=== PATIENT | male | born 1975 | race Caucasian/White ===

== ENCOUNTER 2017-04-30 11:58 | Observation (INO) | payer BC ==
[2017-04-30] MEDS ORDERED: ONDANSETRON 4 MG/2 ML VIAL IVP ONE (13:13)
[2017-04-30] MEDS ORDERED: NS 1,000 ML IV ONE (13:13)
--- NOTE | 2017-04-30 13:18 | EDPHY ---
H & P Smoking Status: Never smoked Time Seen by Provider: 04/30/17 12:34 HPI/ROS: HPI Lower abdominal pain. 42-year-old male by private vehicle. This patient complains of left lower quadrant to mid abdominal pain, starting at approximately 4:00 a.m. This morning. He has had associated nausea and 1 episode of nonbilious, nonbloody vomiting. Pain described as sharp and aching with radiation into his left testicle. No history of trauma. His last meal was at 4:00 p.m. Yesterday. Prior abdominal surgical history includes appendectomy. He reports having a similar episode of this pain but less severe about a week ago. This resolved spontaneously. At that time it lasted about 15-20 minutes. ROS: Constitutional: No fever, no chills. No weakness. Eyes: No discharge. No changes in vision. ENT: No sore throat. No nasal congestion or rhinorrhea. Respiratory: No cough. No shortness of breath. Cardiac: No chest pain, no palpitations. Gastrointestinal: As above, no diarrhea. : No dysuria, denies increased frequency with urination. No gross hematuria. Musculoskeletal: No back pain. No neck pain. No myalgias or arthralgias. Skin: No rashes. Neurological: No headache. No focal weakness or altered sensation. Past medical history: Appendectomy. Social history: Nonsmoker. Here by himself. No alcohol. Physical Exam: General Appearance: Alert, no distress. This patient is responding to questions appropriately and in full sentences. This patient appears well- hydrated and well-nourished. Eyes: Pupils equal and round no pallor or injection. No lid edema, erythema or injection. Respiratory: There are no retractions, lungs are clear to auscultation with good air movement bilaterally. Cardiovascular: Regular rate and rhythm. No murmur. Gastrointestinal: Abdomen is soft with mild to moderate left lower quadrant tenderness on palpation, no masses, bowel sounds normal. No focal tenderness at McBurney's point. No Mitchell sign. Genitourinary: Testicles are unremarkable on exam, normal testicular lie, no clinical evidence of torsion. No masses. Normal circumcised penis. Neurological: Motor sensory function is grossly intact. Cranial nerves are normal. Gait is normal. Skin: Warm and dry, no rashes. Musculoskeletal: Neck is supple and nontender. Extremities are symmetrical. All joints range without pain or impingement. Psychiatric: No agitation. No depression. Database: EKG: Imaging: CT scan of abdomen and pelvis without IV contrast: Significant for a 7 mm distal ureteral stone on the left with moderate hydronephrosis. This stone is 3 mm above the bladder approximately. He also has several stones up in the right kidney. Results were discussed with staff radiologist Dr. Alhaji Rodriguez. Procedures: Emergency department course: IV placed. He was started on IV normal saline with 1 L to be given over the next hour. This time he declines any pain medication. Discussed CT imaging to evaluate for ureterolithiasis verses diverticulitis. He endorses. 1:35 p.m., patient given 0.5 mg of IV hydromorphone for pain. 2:40 p.m., patient re-evaluated. He reports his pain is coming back. He is here for work reasons only. He is staying in a hotel room. His stone is 7 mm. I do not think he will do very well as an outpatient. Plan will be to admit him to the hospitalist service overnight with Urology to consult. He endorses. Hospitalist paged. 3:00 p.m., spoke with hospitalist, patient accepted for admission under the care of Dr. Dr. Ellison. Urology paged. 3:15 p.m., re-evaluated patient. His pain is controlled at this time. Awaiting urology call back. Hospitalist to follow up on urology consultation. Patient admitted to the hospitalist service in stable condition. Differential Diagnosis: The differential diagnosis on this patient includes but is not limited to ureterolithiasis, diverticulitis, constipation. Appendicitis, volvulus, cholecystitis unlikely. This represents a partial list of diagnoses considered. These considerations are based on history, physical exam, past history, reassessment and diagnostic testing. It's (Mainor Sharma) Constitutional: Initial Vital Signs Temperature (C) 36.8 C 04/30/17 12:01 Heart Rate 69 04/30/17 12:01 Respiratory Rate 18 04/30/17 12:01 Blood Pressure 143/100 H 04/30/17 12:01 O2 Sat (%) 96 04/30/17 12:01 O2 Delivery Mode Room Air Allergies/Adverse Reactions: No Known Allergies Allergy (Unverified 04/30/17 12:00) Home Medications: Medication Instructions Recorded NK [No Known Home Meds] 04/30/17 Medical Decision Making - Diagnostics Imaging Results: Imaging Impressions Abdomen/Pelvis CT 04/30/17 13:33 Impression: 1. 7 mm distal left ureteral stone with moderate obstructive uropathy. 2. Multiple renal stones, as above. 3. Additional findings, as above. Findings discussed with Mainor Sharma MD on 04/30/2017 at 14:31. Attention: This CT examination is specifically designed to evaluate patients who are clinically suspected of having acute obstructive uropathy. This examination does not use radiographic contrast, and as such, provides only a limited evaluation of the abdomen, pelvis and retroperitoneum. If there is further clinical suspicion for pathological conditions other than obstructive uropathy, a complete CT evaluation of the abdomen and pelvis utilizing intravenous and oral contrast should be considered. Other Provider: As requested by Dr. Sharma, I fielded the call from Urology and requested a consult from Dr. Rosas a neurology will see the patient today. She requested Dr. Ellison will make the patient NPO today, which was communicated to the admitting hospitalist. I did not personally see or evaluate the patient. (Oswald Gonzalez) - Data Points Laboratory Results: Laboratory Results 04/30/17 12:30 04/30/17 12:30 04/30/17 04/30/17 04/30/17 12:30 12:30 12:30 WBC 11.71 10^3/uL H 10^3/uL (3.80-9.50) RBC 5.01 10^6/uL 10^6/uL (4.40-6.38) Hgb 15.6 g/dL g/dL (13.7-17.5) Hct 45.0 % % (40.0-51.0) MCV 89.8 fL fL (81.5-99.8) MCH 31.1 pg pg (27.9-34.1) MCHC 34.7 g/dL g/dL (32.4-36.7) RDW 11.8 % % (11.5-15.2) Plt Count 188 10^3/uL 10^3/uL (150-400) MPV 10.0 fL fL (8.7-11.7) Neut % (Auto) 90.0 % H % (39.3-74.2) Lymph % (Auto) 5.7 % L % (15.0-45.0) [place] % (Auto) 3.7 % L % (4.5-13.0) Eos % (Auto) 0.0 % L % (0.6-7.6) Baso % (Auto) 0.3 % % (0.3-1.7) Nucleat RBC Rel Count 0.0 % % (0.0-0.2) Absolute Neuts (auto) 10.55 10^3/uL H 10^3/uL (1.70-6.50) Absolute Lymphs (auto) 0.67 10^3/uL L 10^3/uL (1.00-3.00) Absolute Monos (auto) 0.43 10^3/uL 10^3/uL (0.30-0.80) Absolute Eos (auto) 0.00 10^3/uL L 10^3/uL (0.03-0.40) Absolute Basos (auto) 0.03 10^3/uL 10^3/uL (0.02-0.10) Absolute Nucleated RBC 0.00 10^3/uL 10^3/uL (0-0.01) Immature Gran % 0.3 % % (0.0-1.1) Immature Gran # 0.03 10^3/uL 10^3/uL (0.00-0.10) Sodium 139 mEq/L mEq/L (135-145) Potassium 3.6 mEq/L mEq/L (3.5-5.2) Chloride 102 mEq/L mEq/L (97-110) Carbon Dioxide 23 mEq/l mEq/l (22-31) Anion Gap 14 mEq/L mEq/L (8-16) BUN 14 mg/dL mg/dL (7-23) Creatinine 1.5 mg/dL H mg/dL (0.7-1.3) Estimated GFR 52 Glucose 114 mg/dL H mg/dL (70-100) Calcium 10.0 mg/dL mg/dL (8.5-10.4) Urine Color YELLOW Urine Appearance HAZY Urine pH 5.0 (5.0-7.5) Ur Specific [place] 1.029 (1.002-1.030) Urine Protein 1+ H (NEGATIVE) Urine Ketones 1+ H (NEGATIVE) Urine Blood 3+ H (NEGATIVE) Urine Nitrate NEGATIVE (NEGATIVE) Urine Bilirubin NEGATIVE (NEGATIVE) Urine Urobilinogen NEGATIVE EU EU (0.2-1.0) Ur Leukocyte Esterase NEGATIVE (NEGATIVE) Urine RBC 50-182 /hpf H /hpf (0-3) Urine WBC NONE SEEN /hpf /hpf (0-3) Ur Epithelial Cells NONE SEEN /lpf /lpf (NONE-1+) Urine Mucus 2+ /lpf H /lpf (NONE-1+) Urine Glucose NEGATIVE (NEGATIVE) Medications Given: Hydromorphone HCl (Dilaudid) 0.2 - 0.4 mg IVP Q3HRS PRN PRN Reason: Pain, Severe Unable to Take PO Stop: 05/10/17 15:04 Last Admin: 04/30/17 17:46 Dose: 0.4 mg Sodium Chloride (Ns) 1,000 mls @ 100 mls/hr IV CONT [facility] Stop: 10/27/17 15:14 Last Admin: 04/30/17 17:54 Dose: 1,000 mls Levofloxacin (Levaquin) 750 mg PO DAILY AT 10AM [facility] PRN Reason: Protocol Stop: 05/30/17 15:44 Last Admin: 04/30/17 17:51 Dose: 750 mg Ondansetron HCl (Zofran) 4 mg IVP Q4HRS PRN PRN Reason: Nausea/Vomiting, Can't Take PO Stop: 10/27/17 15:04 Last Admin: 04/30/17 17:54 Dose: 4 mg Tamsulosin HCl (Flomax) 0.4 mg PO DAILY [facility] Stop: 10/27/17 15:14 Last Admin: 04/30/17 17:51 Dose: Not Given Discontinued Medications Hydromorphone HCl (Dilaudid) 0.5 mg IVP EDNOW ONE Stop: 04/30/17 13:41 Last Admin: 04/30/17 13:50 Dose: 0.5 mg Hydromorphone HCl (Dilaudid) 0.5 mg IVP EDNOW ONE Stop: 04/30/17 14:40 Last Admin: 04/30/17 14:41 Dose: 0.5 mg Hydromorphone HCl (Dilaudid) 0.5 mg IVP EDNOW ONE Stop: 04/30/17 14:41 Last Admin: 04/30/17 14:42 Dose: Not Given Sodium Chloride (Ns) 1,000 mls @ 0 mls/hr IV EDNOW ONE; Wide Open PRN Reason: Protocol Stop: 04/30/17 13:14 Last Admin: 04/30/17 13:22 Dose: 1,000 mls Ondansetron HCl (Zofran) 4 mg IVP EDNOW ONE Stop: 04/30/17 13:14 Last Admin: 04/30/17 13:22 Dose: 4 mg Departure - Departure Disposition: [facility] Acute Clinical Impression: Lower abdominal pain, Kidney stone on left side Condition: Fair
[2017-04-30 13:22] LABS: PLATELET COUNT 188 10^3/uL (150-400)
[2017-04-30] MEDS ORDERED: HYDROmorphONE/DILAUDID 1 MG/ML INJ ONE (13:32)
[2017-04-30] MEDS ORDERED: HYDROmorphONE/DILAUDID 1 MG/ML INJ IVP ONE ×3 (13:40→14:40)
[2017-04-30] MEDS ORDERED: IBUPROFEN 200 MG TAB PO PRN (15:05)
[2017-04-30] MEDS ORDERED: ONDANSETRON DISINTEGRATING 4 MG TAB PO PRN (15:05)
[2017-04-30] MEDS ORDERED: ZOLPIDEM TARTRATE 5 MG TAB PO PRN (15:05)
[2017-04-30] MEDS ORDERED: ACETAMINOPHEN 325 MG TAB PO PRN (15:05)
--- NOTE | 2017-04-30 15:19 | ASMTLACE ---
SHAHNAZ Acuity / Level of Answers: Yes Care: Did the patient have an inpatient admission? # of Emergency department Answers: 1-2 visits in the last 6 months Score: 4 Date Signed: 04/30/2017 03:18 PM Electronically Signed By:Jewels Amor RN
--- NOTE | 2017-04-30 15:36 | PDGENHP ---
History and Physical History and Physical: CC: Left flank pain HISTORY: This patient is generally quite healthy developed an episode of left flank and left lower quadrant and left testicular pain about a week ago that lasted a couple of days and then with regular fluids seem to get better and resolved. Early this morning he had onset of recurrent pain in the same areas, constant and crampy with some the times of increased cramping. He has no burning with urine but has had some chills today. There has been nausea and vomiting associated with this today. He did not notice blood in his urine per se. He has never had anything like this before. Has no history of urologic illness of any kind including no previous stones but his father history of kidney stones ROS: A comprehensive 10 system review revealed no other significant findings. Notably there is no chest pain or angina-like symptoms, dyspnea, decreased exertion tolerance, upper respiratory symptoms, history of bleeding, history of thromboembolic disease, medication side effects or allergies, gastrointestinal illnesses, for syncopal spells or arrhythmia, symptoms of heart failure, and no family history of any these. As personal history of a appendectomy and had no problems with anesthesia PAST MEDICAL HISTORY: Appendectomy FAMILY MEDICAL HISTORY: Kidney stones in his father. SOCIAL HISTORY: Works for [employer], is here from [place] which is his home for work Rare alcohol intake, no tobacco MEDICATIONS: The patients list has been reconciled by our clinical pharmacist in the EMR. I have reviewed the list and ordered appropriate medicines. PHYSICAL EXAMINATION: Vital Signs: Mild hypertension otherwise normal without fever [employer] Supervisor: Sinus Examination: General: alert, oriented, good mentation, looks somewhat uncomfortable but in no distress Skin: warm, dry, good color, no rash HEENT: normal Neck: no mass or jvd Resps: relaxed Lungs: clear breath sounds Heart: regular, no murmur Abdomen: soft, nondistended, mildly tender in the left mid abdomen left lower quadrant and left flank with no rebound, +BS, no mass Upper Extremities: normal Lower Extremities: no edema, warm No Bleeding or bruising Neurologic: normal speech/language, normal associate pastor, no focal weakness IV site: looks normal LABORATORY DATA: Urinalysis with significant microscopic hematuria otherwise unremarkable White blood cell count elevated 11,000 Creatinine is elevated at 1.5 with no available baseline data RADIOLOGY STUDIES: CT scan of the abdomenpelvis done without contrast and I reviewed the images. He has obvious left side hydronephrosis and a distal calcified left ureteral stone at the UVJ ASSESSMENT: -obstructing ureteral left stone with hydronephrosis -upper tract urinary infection above stone suggested by chills and sweats and elevated white blood cell count -suspected acute verses less likely chronic her renal failure with creatinine 1.5 no available comparisons PLANS: -bring into the hospital in observation for treatment of pain and infection, and for likely surgical approach to stone extraction or at least stenting at this time -IV hydration -empiric antibiotics with Levaquin -pain management -follow renal function closely -the ER is attempting to contact the on-call urologist at this time I have reviewed the patient's case in detail with Dr. Sharma
[2017-04-30] MEDS: HYDROmorphONE/DILAUDID 1 MG/ML INJ IVP PRN ×2 (17:46→20:43)
[2017-04-30] MEDS: TAMSULOSIN HCL 0.4 MG CAP PO SCH ×2 (17:51→20:19)
[2017-04-30] MEDS: ONDANSETRON 4 MG/2 ML VIAL IVP PRN ×2 (17:54→23:21)
[2017-04-30] MEDS: NS 1,000 ML IV SCH (17:54)
[2017-05-01] MEDS: NS 1,000 ML IV SCH ×2 (04:36→20:58)
[2017-05-01] MEDS: ONDANSETRON 4 MG/2 ML VIAL IVP PRN ×5 (04:36→23:19)
[2017-05-01] MEDS: TAMSULOSIN HCL 0.4 MG CAP PO SCH (08:37)
--- NOTE | 2017-05-01 12:48 | HOSPPROG ---
Hospitalist Progress Note Assessment/Plan: * left kidney stone * Although pain is better, KUB confirms stone is still there * Will go to surgery this afternoon *? UTI * Urine is not convincing and only minimal elevation white blood cell count * Ready received a dose of antibiotics today but will not discharged on antibiotics Subjective: Pain feels better Objective: Vital Signs Temp Pulse Resp BP Pulse Ox 36.8 C 79 16 115/73 95 05/01/17 11:30 05/01/17 11:30 05/01/17 11:30 05/01/17 11:30 05/01/17 11:30 Laboratory Results 05/01/17 04:34 04/30/17 05/01/17 05/02/17 05:59 05:59 05:59 Intake Total 2266 Output Total 300 950 Balance 1966 -950 - Physical Exam Constitutional: no apparent distress, appears nourished, not in pain Eyes: anicteric sclera, EOMI Ears, Nose, Mouth, Throat: moist mucous membranes, hearing normal Gastrointestinal: normoactive bowel sounds, other (Mild CVA left lower quadrant tenderness) Neurologic: AAOx3 Psychiatric: interacting appropriately, not anxious, not encephalopathic, thought process linear ICD10 Worksheet Patient Problems: Problems Problem Status Onset Kidney stone on left side Acute Lower abdominal pain Acute
--- NOTE | 2017-05-01 13:03 | GCON ---
[f rep st] CONSULTATION DATE OF CONSULTATION: 05/01/2017 REASON FOR CONSULTATION: Ureterolithiasis. HISTORY OF PRESENT ILLNESS: This is a pleasant 42-year-old man, who presented to the emergency room yesterday with acute left lower quadrant and left flank pain. He had a similar episode a week earlie r that had then subsided. He was also having nausea and vomiting. Denied gross hematuria. No prior history of kidney stones but does have a family history of stones. He lives in [place] and is here visiting. REVIEW OF SYSTEMS: Ten-point review of systems negative except as mentioned in HPI. PAST MEDICAL HISTORY: Appendectomy. FAMILY HISTORY: Kidney stones for father. SOCIAL HISTORY: Lives in [place], outside [place]. Is here working with [employer]. Rare alcohol intake . No tobacco. . and father at bedside. MEDICATIONS: Are in the EMR system. PHYSICAL EXAMINATION: VITAL SIGNS: Blood pressure 115/73, heart rate 79, respirations 16, O2 95, te mperature 36.8. GENERAL: This is a well-developed, well-nourished male in no acute distress. HEENT : Normocephalic, atraumatic. Extraocular movements intact. NECK: Supple. No lymphadenopathy. Tr achea midline. RESPIRATORY: No accessory respiratory muscle use. CARDIAC: Regular rate and rhythm . No lower extremity edema. GI: Abdomen is soft, nondistended. Mildly tender to palpation, left l ower quadrant, and left flank is mildly tender to palpation. INTEGUMENT: No obvious rashes or lesio ns. : No bladder distention. No suprapubic tenderness to palpation. MUSCULOSKELETAL: Patient i s examined while supine but able to move upper extremities without difficulty. NEURO: Patient is al ert and oriented. Affect appropriate to situation. LABS: White blood cell count is 11.71, hemoglobin 15.6, hematocrit 45.8, platelets 188. Chemistry: Sodium 140, potassium 4, chloride 105, carbon dioxide 22, anion gap 13, BUN 14, creatinine 1.4, ____ 9.1, calcium 8.8. Urinalysis is positive for blood, negative for nitrites and leukocytes. He had a CAT scan done that I have personally reviewed, which shows a distal 7 mm left ureteral stone , multiple stones measuring up to 6 mm on the right, punctate stone on the left. Repeat KUB done tod ay continues to show persistent left ureteral stone. PLAN: After discussion of the options and management choices, patient elected to have ureteroscopy d one. The risks and benefits were reviewed with the patient only and questions answered. Consent was signed. If patient has a stent placed, he understands that this will have to be removed or threaten the longevity of the kidney. Recommend a renal ultrasound in 3-6 weeks and a 24-hour urine in the f uture. /[id number]/MODL
--- NOTE | 2017-05-01 14:55 | PDHPUP ---
History & Physical Update H&P update statement: This history and physical update is based on an assessment of the patient which was completed after admission or registration (within 24 hours), but prior to the surgery/procedure. H&P update: H&P reviewed & patient examined, no change in patient's condition since H&P completed
[2017-05-01] MEDS ORDERED: PROPOFOL 200 MG/20 ML VIAL ONE ×2 (15:14→17:50)
[2017-05-01] MEDS ORDERED: fentaNYL 100 MCG/2 ML INJ ONE ×4 (15:14→20:11)
[2017-05-01] MEDS ORDERED: LIDOCAINE 2% 100 MG/5 ML SYR ONE (15:16)
[2017-05-01] MEDS ORDERED: ROCURONIUM 50 MG/5 ML VIAL ONE (15:16)
[2017-05-01] MEDS ORDERED: IOPAMIDOL (ISOVUE-300) 150 ML BTL ONE (15:43)
[2017-05-01] MEDS ORDERED: LIDOCAINE 2% JELLY 20 ML (UROJECT) ONE (15:43)
--- NOTE | 2017-05-01 17:47 | PDANEPAE ---
ANE Past Medical History - Pulmonary History Hx Oxygen in Use at Home: No Hx Sleep Apnea: No Sleep Apnea Screening Result - Last Documented: Negative - Endocrine History Hx Diabetes: No - Chronic Pain History Chronic Pain: No ANE Review of Systems Review of Systems: ANE Patient History - Allergies Allergies/Adverse Reactions: No Known Allergies Allergy (Unverified 04/30/17 12:00) - Home Medications Home Medications: NK [No Known Home Meds] 04/30/17 [Last Taken Unknown] - NPO status NPO Since - Liquids (Date): 05/01/17 NPO Since - Liquids (Time): 00:00 NPO Since - Solids (Date): 05/01/17 NPO Since - Solids (Time): 00:00 - Smoking Hx Smoking Status: Never smoked ANE Labs/Vital Signs - Labs Result Diagrams: 04/30/17 12:30 05/01/17 04:34 - Vital Signs Blood Pressure: 120/83 Heart Rate: 85 Respiratory Rate: 18 O2 Sat (%): 93 Height: 182.88 cm Weight: 102.058 kg ANE Physical Exam - Airway Neck exam: FROM Mallampati Score: Class 1 Mouth exam: normal dental/mouth exam - Pulmonary Pulmonary: no respiratory distress - Cardiovascular Cardiovascular: regular rate and rhythym - ASA Status ASA Status: I ANE Anesthesia Plan Anesthesia Plan: general endotracheal anesthesia
[2017-05-01] MEDS ORDERED: MIDAZOLAM 2 MG/2 ML VIAL ONE (17:49)
[2017-05-01] MEDS ORDERED: DEXAMETHASONE 4 MG/ML VIAL ONE ×2 (17:50)
[2017-05-01] MEDS ORDERED: ceFAZolin 2 GM/SWFI 2 GM/20 ML SYR IVP ONE (18:07)
[2017-05-01] MEDS ORDERED: ceFAZolin 2 GM/SWFI 20 ML SYR IVP ONE (18:08)
[2017-05-01] MEDS ORDERED: SUGAMMADEX SODIUM 200 MG/2 ML VIAL IVP ONE ×2 (18:43)
--- NOTE | 2017-05-01 19:08 | POSTOPPROG ---
Post Op Note Date of Operation: 05/01/17 Surgeon: Jose Hooper Anesthesiologist: Dequan Anesthesia: GET(General Endotracheal) Pre-op Diagnosis: left ureteral stone Procedure: ureteroscopy--dictated Inf/Abcess present in the surg proc area at time of surgery?: No EBL: Minimal Drains: Other (left ureteral stent) Specimen(s): stone
[2017-05-01] MEDS ORDERED: ALBUTEROL 3 ML DEYVIAL IH PRN (19:11)
[2017-05-01] MEDS ORDERED: NALOXONE HCL 0.4 MG/ML INJ IVP PRN (19:11)
[2017-05-01] MEDS ORDERED: fentaNYL 100 MCG/2 ML INJ IVP PRN (19:11)
[2017-05-01] MEDS ORDERED: MEPERIDINE 25 MG/ML SYR IVP PRN (19:11)
--- NOTE | 2017-05-01 19:12 | POSTANESTH ---
Post Anesthetic Evaluation Cardiovascular Status: Similar to Pre-Op Cond Respiratory Status: Similar to Pre-op Cond. Level of Consciousness/Mental Status: Mildly Sleepy, Arousable Pain Control: Adequate, Prn Tx Ordered Nausea/Vomiting Control: Adequate, Prn Tx Ordered Complications Possibly Related to Anesthesia: None Noted
[2017-05-01] MEDS ORDERED: ONDANSETRON 4 MG/2 ML VIAL ONE ×2 (19:22→19:57)
[2017-05-01] MEDS: HYDROmorphONE/DILAUDID 1 MG/ML INJ IVP PRN ×2 (21:08→23:40)
--- NOTE | 2017-05-01 21:55 | GOP ---
[f rep st] OPERATIVE REPORT DATE OF OPERATION: 05/01/2017 SURGEON: Jose Hooper MD PREOPERATIVE DIAGNOSIS: Left ureteral calculus, hydronephrosis. POSTOPERATIVE DIAGNOSIS: Left ureteral calculus, hydronephrosis. PROCEDURE PERFORMED: Cystoscopy, retrograde ureteral pyelogram, dilation of the ureter, ureteroscopy with laser lithotripsy and extraction of stone, placement of 4.7 multi-length stent under fluoroscop ic control with interpretation. FINDINGS: SPECIMENS: Stone, looked like calcium oxalate. ESTIMATED BLOOD LOSS: Less than 10 mL DESCRIPTION OF PROCEDURE: Víctorman underwent general anesthesia. Was prepped and draped in normal sterile fashion. Dorsal lithotomy position. Urethra normal. Prostate had mild bladder neck elevati on with obstruction. Left ureteral orifice cannulated and retrograde revealed the distal ureteral st one with hydronephrosis. An angled guidewire was passed beyond the stone and the inner working sheat h, part of the ureteral access sheath, was used to dilate the ureter. Semi-rigid scope went up and f ragmented the stone. I used a total of 357 joules to fragment the stone and then passes to extract a ll the stones. Visualization postop revealed no tearing of the ureter. He did have edema, and with his hydronephrosis, I elected to place a stent. The stent curled in the renal pelvis, curled in the bladder. String was placed on the stent so the patient could pull it at his discretion since he live s in [place]. Put a catheter in with the Uro-Jet to leave it and then pull it in the morning and di scharge him tomorrow morning. COMPLICATIONS: None. /[id number]/MODL
[2017-05-02 03:48] VITALS: TEMP 98.1
[2017-05-02] MEDS: HYDROmorphONE/DILAUDID 1 MG/ML INJ IVP PRN (03:52)
[2017-05-02] MEDS: ONDANSETRON 4 MG/2 ML VIAL IVP PRN (04:00)
[2017-05-02] MEDS: NS 1,000 ML IV SCH (05:50)
[2017-05-02] MEDS: TAMSULOSIN HCL 0.4 MG CAP PO SCH (09:20)
[2017-05-02 09:25] VITALS: BP 116/79; PULSE 88; RESP 16; O2SAT 93
--- NOTE | 2017-05-02 09:57 | GDS ---
[f rep st] DISCHARGE SUMMARY DISCHARGE DIAGNOSIS: Left kidney stone. HISTORY: This is a 42-year-old male who presented with flank pain. HOSPITAL COURSE: Patient was admitted. Had 7 mm kidney stone in the ureter. Urology was consulted. He underwent lithotripsy and stent placement. He is doing well the following day, and he is being discharged home. /[id number]/MODL
== END 2017-05-02 10:46 | disposition home or self-care (01) ==
LOC: F1N 16:16
PROVIDERS: ADMIT Internal Medicine; ATTEND Internal Medicine
DX: N13.2 Hydronephrosis with renal and ureteral calculous obstruction (principal)
CPT/HCPCS: 52356; 74018; 74176; 76001; 96361; 96374; 96375; 96376; 99285; C1758; C1894; G0378; 82365-90; C2625; J0690; J1100; J1170; J2001; J2250; J2405; J2704; J3010; Q9967